=== PATIENT | female | born 1950 | race Caucasian/White ===

== ENCOUNTER 2019-06-05 19:13 | Inpatient (IN) | payer MEDICARE, MEDICAID ==
[~2019-06-05] VITALS: Ht 165.1 cm; Wt 64.0 kg
[2019-06-05 20:00] VITALS: BP 149/103
[2019-06-05] MEDS ORDERED: ONDANSETRON HCL 4MG/2ML INJ IV STA (20:03)
[2019-06-05] MEDS ORDERED: MORPHINE SULFATE 4 MG/ML CPJ (NOT FOR IM USE) IV STA (20:03)
[2019-06-05 21:05] LABS: HEMOGLOBIN. 13.9 g/dL (12.0-16.0); MEAN CORPUSCULAR HEMOGLOBIN 30.8 pg (28.0-32.0); MEAN CORPUSCULAR VOLUME 93.2 fL (81.0-99.0); MEAN PLATELET VOLUME 8.7 fl (7.4-10.4); PLATELET 321 x1000/uL (130-400); RED BLOOD CELL COUNT 4.51 mill/uL (4.2-5.4)
[2019-06-05 21:06] LABS: INR 1.1
[2019-06-05 21:07] LABS: CHLORIDE 105 mEq/L (98-107)
[2019-06-05 21:33] LABS: PLATELET ESTIMATE NORMAL
[2019-06-05 21:54] LABS: CLARITY URINE CLOUDY (CLEAR); COLOR URINE YELLOW (YELLOW); KETONES URINE 3+ (NEGATIVE); LEUKOCYTE ESTERASE URINE 1+ (NEGATIVE); NITRITE URINE NEGATIVE (NEGATIVE); OCCULT BLOOD URINE 3+ (NEGATIVE); PROTEIN URINE 3+ (NEGATIVE); SPECIFIC GRAVITY URINE 1.022 (1.005-1.030); UROBILINOGEN URINE 0.2 E.U./dL (0.2-1.0)
[2019-06-05] MEDS ORDERED: LEVOFLOXACIN 750MG PREMIX 150 ML IV ONE (22:45)
[2019-06-06] VITALS: BP_SYST 168; BP_SYST 200; BP_DIAS 100; BP_DIAS 128
[2019-06-06] MEDS ORDERED: HYDROCODONE/ACETAMINOPHEN 5/325MG TABLET PO PRN (00:30)
[2019-06-06] MEDS ORDERED: GUAIFENESIN 200MG/10ML SUGAR FREE UDC PO PRN (00:30)
[2019-06-06] MEDS ORDERED: MAGNESIUM/ALUMINUM HYDROXIDE/SIMETHICONE 30ML UDC PO PRN (00:30)
[2019-06-06] MEDS ORDERED: DOCUSATE SODIUM 100MG CAPSULE PO PRN (00:30)
[2019-06-06] MEDS ORDERED: CLONIDINE 0.1MG TABLET PO PRN (00:30)
[2019-06-06] MEDS ORDERED: IPRATROPIUM/ALBUTEROL 0.5-3(2.5)MG/3ML NEB NEB PRN (00:30)
[2019-06-06] MEDS ORDERED: LEVOFLOXACIN 500MG PREMIX 100 ML IV SCH ×2 (00:30→22:00)
[2019-06-06] MEDS ORDERED: ACETAMINOPHEN 325MG TABLET PO PRN (00:30)
[2019-06-06 03:00] VITALS: BP 155/67
[2019-06-06 04:00] VITALS: BP_SYST 150; BP_SYST 174; BP_DIAS 76; BP_DIAS 95
[2019-06-06] MEDS ORDERED: PANT40TA4 PO ×2 (04:30→04:33)
[2019-06-06] MEDS ORDERED: FLUV50TA3 PO (04:31)
[2019-06-06] MEDS ORDERED: BUSP15TA3 PO (04:32)
[2019-06-06] MEDS ORDERED: RANI300T4 PO (04:34)
[2019-06-06] MEDS ORDERED: FORM20VI IH (04:35)
[2019-06-06 08:00] VITALS: BP 159/81
[2019-06-06] MEDS ORDERED: IPRATROPIUM/ALBUTEROL 0.5-3(2.5)MG/3ML NEB HHN PRN (09:30)
[2019-06-06] MEDS ORDERED: PANTOPRAZOLE 40MG DR TABLET PO SCH (09:30)
[2019-06-06] MEDS ORDERED: POTASSIUM CHLORIDE 20MEQ TABLET SR PO NR (09:30)
[2019-06-06] MEDS: ASPIRIN 81MG EC TABLET PO SCH (10:25)
[2019-06-06] MEDS: ENOXAPARIN 40MG/0.4ML SYR SUBCUT SCH (10:26)
[2019-06-06] MEDS: BUSPIRONE HCL 10MG TABLET PO SCH ×2 (10:26→20:18)
[2019-06-06] MEDS: AMLODIPINE 10MG TABLET PO SCH (10:27)
[2019-06-06 12:00] VITALS: BP 132/79
[2019-06-06] MEDS ORDERED: GUAIFENESIN/DM 600MG/30MG ER TAB 12HR PO PRN (12:15)
[2019-06-06] MEDS ORDERED: PROCHLORPERAZINE 10MG/2ML VIAL IM PRN (12:30)
[2019-06-06] MEDS: IPRATROPIUM/ALBUTEROL 0.5-3(2.5)MG/3ML NEB HHN SCH ×2 (12:48→20:39)
[2019-06-06] MEDS: MONTELUKAST SODIUM 10MG TABLET PO SCH (18:32)
[2019-06-06 20:00] VITALS: BP 125/77
[2019-06-06] MEDS: LORATADINE 10MG TABLET PO SCH (20:18)
[2019-06-06] MEDS: FAMOTIDINE 20MG/2ML VIAL IV SCH (20:18)
[2019-06-06] MEDS: FLUTICASONE PROPIONATE 50MCG/SPRAY BOTTLE BOTHNSTRLS SCH (20:18)
[2019-06-06] MEDS: ONDANSETRON HCL 4MG/2ML INJ IV PRN (20:59)
[2019-06-07] VITALS: BP 177/96
[2019-06-07] MEDS: IPRATROPIUM/ALBUTEROL 0.5-3(2.5)MG/3ML NEB HHN SCH ×2 (01:53→08:46)
[2019-06-07 04:00] VITALS: BP 158/87
[2019-06-07 07:36] LABS: HEMATOCRIT. 40.2 % (36.0-48.0); HEMOGLOBIN. 13.3 g/dL (12.0-16.0); MEAN CORPUSCULAR VOLUME 93.9 fL (81.0-99.0); PLATELET 296 x1000/uL (130-400); RED BLOOD CELL COUNT 4.28 mill/uL (4.2-5.4); RED CELL DISTRIBUTION WIDTH 13.3 % (11.6-14.6)
[2019-06-07 08:30] LABS: CHLORIDE 105 mEq/L (98-107)
[2019-06-07] MEDS: ASPIRIN 81MG EC TABLET PO SCH (09:50)
[2019-06-07] MEDS: BUSPIRONE HCL 10MG TABLET PO SCH ×2 (09:50→20:08)
[2019-06-07] MEDS: FAMOTIDINE 20MG/2ML VIAL IV SCH ×2 (09:50→20:07)
[2019-06-07] MEDS: ENOXAPARIN 40MG/0.4ML SYR SUBCUT SCH (09:53)
[2019-06-07] MEDS: FLUTICASONE PROPIONATE 50MCG/SPRAY BOTTLE BOTHNSTRLS SCH ×2 (09:56→20:09)
[2019-06-07] MEDS: AMLODIPINE 10MG TABLET PO SCH (10:01)
[2019-06-07] MEDS ORDERED: DILTIAZEM HCL 5MG/ML 5ML VIAL IV NR (10:15)
[2019-06-07] MEDS ORDERED: DILTIAZEM HCL 5MG/ML 10ML VIAL IV NR (10:30)
[2019-06-07] MEDS ORDERED: POTASSIUM CHLORIDE 20MEQ TABLET SR PO NR (10:45)
[2019-06-07] MEDS: CEFTRIAXONE 1 G PREMIX 50 ML IV SCH (12:35)
[2019-06-07] MEDS: METOPROLOL TARTRATE 50MG TABLET PO SCH ×2 (12:35→20:09)
[2019-06-07 12:41] LABS: T4 FREE 1.19 ng/dL (0.76-1.46)
[2019-06-07] MEDS: IPRATROPIUM BROMIDE (0.02%) 0.5MG/2.5ML NEB HHN SCH ×2 (14:38→21:35)
[2019-06-07] MEDS: MONTELUKAST SODIUM 10MG TABLET PO SCH (16:20)
[2019-06-07 18:42] LABS: PLATELET ESTIMATE NORMAL
[2019-06-07 20:00] VITALS: BP 118/62
[2019-06-07] MEDS: LORATADINE 10MG TABLET PO SCH (20:08)
[2019-06-07] MEDS: ONDANSETRON HCL 4MG/2ML INJ IV PRN (20:08)
[2019-06-08] VITALS: BP 119/62
[2019-06-08] MEDS: IPRATROPIUM BROMIDE (0.02%) 0.5MG/2.5ML NEB HHN SCH ×4 (01:26→20:54)
[2019-06-08 04:00] VITALS: BP 130/67
[2019-06-08 07:08] LABS: BASOPHILS % 0.7 % (0.0-2.0); EOSINOPHILS % 0.7 % (0.0-5.0); HEMATOCRIT. 39.6 % (36.0-48.0); HEMOGLOBIN. 13.4 g/dL (12.0-16.0); MEAN CORPUSCULAR HEMOGLOBIN 31.7 pg (28.0-32.0); MEAN CORPUSCULAR VOLUME 93.8 fL (81.0-99.0); MEAN PLATELET VOLUME 8.8 fl (7.4-10.4); MONOCYTES % 6.4 % (2.0-8.0); NEUTROPHILS % 83.2 % (40.0-76.0); PLATELET 298 x1000/uL (130-400); RED BLOOD CELL COUNT 4.22 mill/uL (4.2-5.4); RED CELL DISTRIBUTION WIDTH 13.4 % (11.6-14.6)
[2019-06-08 07:22] LABS: CHLORIDE 105 mEq/L (98-107)
[2019-06-08 08:00] VITALS: BP 138/78
[2019-06-08] MEDS: ENOXAPARIN 40MG/0.4ML SYR SUBCUT SCH (09:03)
[2019-06-08] MEDS: FAMOTIDINE 20MG/2ML VIAL IV SCH ×2 (09:03→21:24)
[2019-06-08] MEDS: METOPROLOL TARTRATE 50MG TABLET PO SCH ×2 (09:04→21:23)
[2019-06-08] MEDS: FLUTICASONE PROPIONATE 50MCG/SPRAY BOTTLE BOTHNSTRLS SCH ×2 (09:04→21:24)
[2019-06-08] MEDS: ASPIRIN 81MG EC TABLET PO SCH (09:04)
[2019-06-08] MEDS: BUSPIRONE HCL 10MG TABLET PO SCH ×2 (09:04→21:23)
[2019-06-08] MEDS: AMLODIPINE 10MG TABLET PO SCH (09:08)
[2019-06-08 12:00] VITALS: BP 114/49
[2019-06-08] MEDS: CEFTRIAXONE 1 G PREMIX 50 ML IV SCH (12:45)
[2019-06-08 16:00] VITALS: BP 113/56
[2019-06-08] MEDS: MONTELUKAST SODIUM 10MG TABLET PO SCH (18:37)
[2019-06-08 20:00] VITALS: BP 141/73
[2019-06-08] MEDS: LORATADINE 10MG TABLET PO SCH (21:23)
[2019-06-09] VITALS: BP 126/57
[2019-06-09] MEDS: IPRATROPIUM BROMIDE (0.02%) 0.5MG/2.5ML NEB HHN SCH ×2 (01:58→14:00)
[2019-06-09 04:00] VITALS: BP 127/67
[2019-06-09 07:03] LABS: BASOPHILS % 0.4 % (0.0-2.0); EOSINOPHILS % 1.7 % (0.0-5.0); HEMATOCRIT. 43.7 % (36.0-48.0); HEMOGLOBIN. 14.7 g/dL (12.0-16.0); LYMPHOCYTES % 14.1 % (20.0-50.0); MEAN CORPUSCULAR HEMOGLOBIN 31.4 pg (28.0-32.0); MEAN CORPUSCULAR VOLUME 93.6 fL (81.0-99.0); MEAN PLATELET VOLUME 9.2 fl (7.4-10.4); MONOCYTES % 8.3 % (2.0-8.0); NEUTROPHILS % 75.5 % (40.0-76.0); PLATELET 319 x1000/uL (130-400); RED BLOOD CELL COUNT 4.67 mill/uL (4.2-5.4); RED CELL DISTRIBUTION WIDTH 13.4 % (11.6-14.6)
[2019-06-09 07:32] LABS: CHLORIDE 105 mEq/L (98-107)
[2019-06-09 07:42] LABS: LDL CHOLESTEROL 119 mg/dL (5-100)
[2019-06-09 07:46] LABS: HDL CHOLESTEROL 57 mg/dL (40-59)
[2019-06-09 08:00] VITALS: BP 134/77
[2019-06-09] MEDS: FLUTICASONE PROPIONATE 50MCG/SPRAY BOTTLE BOTHNSTRLS SCH (08:29)
[2019-06-09] MEDS: ENOXAPARIN 40MG/0.4ML SYR SUBCUT SCH (08:29)
[2019-06-09] MEDS: FAMOTIDINE 20MG/2ML VIAL IV SCH (08:29)
[2019-06-09] MEDS: BUSPIRONE HCL 10MG TABLET PO SCH (08:29)
[2019-06-09] MEDS: ASPIRIN 81MG EC TABLET PO SCH (08:29)
[2019-06-09] MEDS: AMLODIPINE 10MG TABLET PO SCH (08:30)
[2019-06-09] MEDS: METOPROLOL TARTRATE 50MG TABLET PO SCH (08:31)
[2019-06-09] MEDS ORDERED: BUDESONIDE 0.5MG/2ML NEB HHN SCH (09:00)
[2019-06-09] MEDS ORDERED: METF-414 PO (09:49)
[2019-06-09] MEDS ORDERED: LISI40TA4 MT (09:49)
[2019-06-09] MEDS ORDERED: QUET100T MT (09:49)
[2019-06-09] MEDS ORDERED: TRAZ150T78 MT (09:49)
[2019-06-09 12:00] VITALS: BP 131/63
[2019-06-09 13:35] VITALS: BP 131/63
[2019-06-09] MEDS ORDERED: NITROFURANTOIN 100MG M/M CAPSULE PO SCH (21:00)
[2019-06-09] MEDS ORDERED: ATORVASTATIN CALCIUM 20MG TABLET PO SCH (21:00)
== END 2019-06-09 15:50 | disposition home or self-care (01) | DRG 871 ==
LOC: ER 19:13 → 7WST 22:55 → ENRESERV 23:24 → 7WST 06-09 02:30
PROVIDERS: ADMIT Hospitalist; ATTEND Hospitalist
DX: A41.51 Sepsis due to Escherichia coli [E. coli] (principal); J18.9 Pneumonia, unspecified organism; J96.00 Acute respiratory failure, unspecified whether with hypoxia or hypercapnia; N39.0 Urinary tract infection, site not specified; I47.1 Supraventricular tachycardia; J44.0 Chronic obstructive pulmonary disease with (acute) lower respiratory infection; Z16.23 Resistance to quinolones and fluoroquinolones; B96.20 Unspecified Escherichia coli [E. coli] as the cause of diseases classified elsewhere; E87.6 Hypokalemia; I10 Essential (primary) hypertension; J30.2 Other seasonal allergic rhinitis; K21.9 Gastro-esophageal reflux disease without esophagitis; G89.29 Other chronic pain; R74.0 Nonspecific elevation of levels of transaminase and lactic acid dehydrogenase [LDH]; K29.70 Gastritis, unspecified, without bleeding; K57.90 Diverticulosis of intestine, part unspecified, without perforation or abscess without bleeding; K44.9 Diaphragmatic hernia without obstruction or gangrene; M77.9 Enthesopathy, unspecified; M19.90 Unspecified osteoarthritis, unspecified site; G40.909 Epilepsy, unspecified, not intractable, without status epilepticus; Z87.891 Personal history of nicotine dependence; Z85.828 Personal history of other malignant neoplasm of skin; Z82.49 Family history of ischemic heart disease and other diseases of the circulatory system; Z87.19 Personal history of other diseases of the digestive system; Z79.899 Other long term (current) drug therapy
CPT/HCPCS: 36415; 71045; 74176; 80048; 80053; 80061; 81003; 83036; 83735; 84439; 84443; 84484; 85025; 87077; 87186; 93005; 93970; 94640; 97162; 97166; 99285; C1893; J0696; J1650; J1956; J2270; J2405; J3490; J7620

== ENCOUNTER 2020-03-07 20:32 | Inpatient (IN) | payer MEDICARE, MEDICAID ==
[~2020-03-07] VITALS: Ht 160 cm; Wt 67.3 kg
[~2020-03-07 20:32] MED LIST: BUSP15TA3 PO; FLUV50TA3 PO; FORM20VI IH; PANT40TA4 PO; RANI300T4 PO
[2020-03-07] MEDS ORDERED: AMIODARONE HCL 900 MG in DEXT 5% WATER 500 ML IV ONE (20:45)
[2020-03-07] MEDS ORDERED: AMIODARONE HCL 150 MG in DEXT 5% WATER 100 ML IV ONE (20:45)
[2020-03-07] MEDS ORDERED: ASPIRIN 81MG TABLET PO ONE (20:45)
[2020-03-07] MEDS ORDERED: ONDANSETRON HCL 4MG/2ML INJ IV STA (20:45)
[2020-03-07] MEDS ORDERED: SODIUM CHLORIDE 0.9% 1,000 ML IV ONE (20:45)
[2020-03-07] MEDS ORDERED: MIDAZOLAM HCL 2 MG/2 ML VIAL IV ONE (21:00)
[2020-03-07 22:11] LABS: HEMATOCRIT. 34.3 % (36.0-48.0); HEMOGLOBIN. 11.3 g/dL (12.0-16.0); MEAN CORPUSCULAR HEMOGLOBIN 31.4 pg (28.0-32.0); MEAN CORPUSCULAR VOLUME 95.6 fL (81.0-99.0); MEAN PLATELET VOLUME 9.7 fl (7.4-10.4); PLATELET 216 x1000/uL (130-400); RED BLOOD CELL COUNT 3.59 mill/uL (4.2-5.4); RED CELL DISTRIBUTION WIDTH 13.9 % (11.6-14.6)
[2020-03-07 22:17] LABS: INR 1.3; PROTHROMBIN TIME 13.2 sec (9.6-11.0)
[2020-03-07 22:28] LABS: CHLORIDE 108 mEq/L (98-107)
[2020-03-07 22:56] LABS: PLATELET ESTIMATE NORMAL
[2020-03-07] MEDS ORDERED: HEPARIN 25,000 UNITS PREMIX 250 ML IV ONE (23:00)
[2020-03-07] MEDS ORDERED: HEPARIN 5000 UNITS/ML VIAL IV ONE (23:00)
[2020-03-08] VITALS (16 sets, daily range): BP systolic 102–124; BP diastolic 56–84
[2020-03-08] MEDS ORDERED: HEPARIN 60 UNITS/KG BOLUS IV SCH
[2020-03-08] MEDS ORDERED: HEPARIN BOLUS PRN aPTT 30-44 IV
[2020-03-08] MEDS ORDERED: HEPARIN 5000 UNITS/ML VIAL IV ONE
[2020-03-08] MEDS ORDERED: HEPARIN 25,000 UNITS PREMIX 250 ML IV SCH
[2020-03-08] MEDS ORDERED: HEPARIN BOLUS PRN aPTT <30 IV
[2020-03-08] MEDS ORDERED: CLONIDINE 0.1MG TABLET PO PRN (09:30)
[2020-03-08] MEDS ORDERED: IPRATROPIUM/ALBUTEROL 0.5-3(2.5)MG/3ML NEB HHN PRN (09:30)
[2020-03-08] MEDS ORDERED: CEFTRIAXONE 1 G PREMIX 50 ML IV NR (09:30)
[2020-03-08] MEDS ORDERED: DIPHENHYDRAMINE 50MG/ML VIAL IV PRN (09:30)
[2020-03-08] MEDS ORDERED: ACETAMINOPHEN 325MG TABLET PO PRN (09:30)
[2020-03-08 10:01] LABS: PHOSPHORUS 2.7 mg/dL (2.5-4.9)
[2020-03-08 10:55] LABS: CLARITY URINE CLOUDY (CLEAR); COLOR URINE YELLOW (YELLOW); KETONES URINE 1+ (NEGATIVE); OCCULT BLOOD URINE NEGATIVE (NEGATIVE); PH URINE 5.5 (4.5-8.0); PROTEIN URINE 1+ (NEGATIVE); SPECIFIC GRAVITY URINE 1.024 (1.005-1.030)
[2020-03-08 10:56] LABS: LEUKOCYTE ESTERASE URINE 2+ (NEGATIVE); NITRITE URINE NEGATIVE (NEGATIVE); UROBILINOGEN URINE 0.2 E.U./dL (0.2-1.0)
[2020-03-08 11:18] LABS: *BARBITURATES SCREEN URINE NEGATIVE (NEGATIVE)
[2020-03-08 11:20] LABS: *AMPHETAMINES SCREEN URINE NEGATIVE (NEGATIVE); *BENZODIAZEPINES SCREEN URINE PRESUMTIVE POSITIVE (NEGATIVE); *COCAINE SCREEN URINE NEGATIVE (NEGATIVE); CANNABINOID URINE SCREEN NEGATIVE (NEGATIVE); METHADONE URINE SCREEN NEGATIVE (NEGATIVE); OPIATES URINE SCREEN NEGATIVE (NEGATIVE); PHENCYCLIDINE URINE SCREEN NEGATIVE (NEGATIVE)
[2020-03-08] MEDS ORDERED: POTASSIUM CHLORIDE INJ 40 MEQ in DEXT 5% WATER 250 ML IV SCH (13:00)
[2020-03-08] MEDS ORDERED: HEPARIN 5000 UNITS/ML VIAL IV PRN (16:00)
[2020-03-08 18:44] LABS: CREATINE KINASE MB FRACTION 15.2 ng/mL (0.5-3.6)
[2020-03-08] MEDS: CEFTRIAXONE 1,000 MG in DEXTROSE 5% WATER 50 ML IV SCH (20:22)
[2020-03-08] MEDS: ONDANSETRON HCL 4MG/2ML INJ IV PRN (20:22)
[2020-03-08] MEDS: BLOOD SUGAR DIAGNOSTIC STRIP TEST SCH (20:55)
[2020-03-08] MEDS: INSULIN LISPRO 100 UNITS/ML SUBCUT SCH (21:05)
[2020-03-09] VITALS (61 sets, daily range): BP systolic 11–129; BP diastolic 37–87
[2020-03-09 00:29] LABS: CREATINE KINASE MB FRACTION 12.9 ng/mL (0.5-3.6)
[2020-03-09] MEDS ORDERED: DILTIAZEM HCL 5MG/ML 5ML VIAL IV SCH (05:00)
[2020-03-09] MEDS ORDERED: AMIODARONE HCL 150 MG in DEXT 5% WATER 100 ML IV SCH (05:30)
[2020-03-09] MEDS: AMIODARONE HCL 900 MG in DEXT 5% WATER 482 ML IV PRN (05:56)
[2020-03-09 06:51] LABS: BASOPHILS % 0.2 % (0.0-2.0); EOSINOPHILS % 0.1 % (0.0-5.0); HEMATOCRIT. 37.4 % (36.0-48.0); HEMOGLOBIN. 12.5 g/dL (12.0-16.0); LYMPHOCYTES % 7.8 % (20.0-50.0); MEAN CORPUSCULAR HEMOGLOBIN 31.3 pg (28.0-32.0); MEAN PLATELET VOLUME 10.2 fl (7.4-10.4); MONOCYTES % 6.6 % (2.0-8.0); NEUTROPHILS % 85.3 % (40.0-76.0); PLATELET 241 x1000/uL (130-400); RED BLOOD CELL COUNT 3.98 mill/uL (4.2-5.4); RED CELL DISTRIBUTION WIDTH 13.8 % (11.6-14.6)
[2020-03-09 07:16] LABS: CHLORIDE 102 mEq/L (98-107)
[2020-03-09 07:19] LABS: HDL CHOLESTEROL 58 mg/dL (40-59); LDL CHOLESTEROL 33 mg/dL (5-100)
[2020-03-09] MEDS: BLOOD SUGAR DIAGNOSTIC STRIP TEST SCH ×4 (07:50→21:00)
[2020-03-09] MEDS: MORPHINE SULFATE 2 MG/ML CPJ (NOT FOR IM USE) IV PRN ×3 (08:15→16:42)
[2020-03-09] MEDS: INSULIN LISPRO 100 UNITS/ML SUBCUT SCH ×4 (08:20→21:00)
[2020-03-09] MEDS ORDERED: CEFTRIAXONE 1,000 MG in DEXTROSE 5% WATER 50 ML IV SCH (09:00)
[2020-03-09] MEDS ORDERED: FENTANYL CITRATE/PF 50MCG/ML 2ML VIAL ONE (10:08)
[2020-03-09] MEDS ORDERED: MIDAZOLAM HCL 2 MG/2 ML VIAL ONE (10:08)
[2020-03-09] MEDS ORDERED: IODIXANOL 320MG/ML 100 ML BOTTLE IV ONE (10:08)
[2020-03-09] MEDS ORDERED: LIDOCAINE HCL 1% 20ML VIAL (Pyxis) INJ ONE ×2 (10:08→10:38)
[2020-03-09] MEDS ORDERED: ACETAMINOPHEN 325MG TABLET PO PRN (11:15)
[2020-03-09] MEDS ORDERED: ATROPINE SULFATE 1MG/10ML SYR IV PRN (11:15)
[2020-03-09] MEDS: SACUBITRIL PO SCH ×2 (11:45→23:45)
[2020-03-09] MEDS: VALSARTAN PO SCH ×2 (11:45→23:45)
[2020-03-09 12:33] LABS: CREATINE KINASE 692 IU/L (26-192)
[2020-03-09] MEDS: NYSTATIN POWDER 15GM TOP SCH ×2 (14:30→17:00)
[2020-03-09] MEDS ORDERED: DILTIAZEM HCL 5MG/ML 5ML VIAL IV NR (15:15)
[2020-03-09] MEDS ORDERED: PNEUMOCOCCAL 23-VAL P-SAC VAC 0.5 ML IM ONE (17:00)
[2020-03-09] MEDS ORDERED: INFLUENZA VACCINE 05/PF 0.5 ML VIAL IM ONE (17:00)
[2020-03-09 17:18] LABS: HEPATITIS B SURFACE ANTIGEN NEGATIVE
[2020-03-09 17:48] LABS: HEPATITIS A AB IGM NEGATIVE (NEGATIVE)
[2020-03-09] MEDS: CEFTRIAXONE 1,000 MG in DEXTROSE 5% WATER 50 ML IV SCH (18:55)
[2020-03-09] MEDS: CARVEDILOL 6.25 MG TABLET PO SCH (21:00)
[2020-03-09] MEDS ORDERED: CARVEDILOL 3.125 MG TABLET PO SCH (21:00)
[2020-03-09] MEDS ORDERED: DIGOXIN 500MCG/2ML AMP IV NR (23:00)
[2020-03-09] MEDS ORDERED: MIDODRINE HCL 2.5MG TABLET PO NR (23:00)
[2020-03-10] VITALS (71 sets, daily range): BP systolic 55–133; BP diastolic 23–74
[2020-03-10] MEDS: PHENYLEPHRINE 50 MG in DEXT 5% WATER 245 ML IV PRN ×4 (00:29→21:52)
[2020-03-10] MEDS: MORPHINE SULFATE 2 MG/ML CPJ (NOT FOR IM USE) IV PRN (02:10)
[2020-03-10 06:37] LABS: BASOPHILS % 0.2 % (0.0-2.0); HEMATOCRIT. 38.8 % (36.0-48.0); HEMOGLOBIN. 12.9 g/dL (12.0-16.0); LYMPHOCYTES % 9.3 % (20.0-50.0); MEAN CORPUSCULAR HEMOGLOBIN 31.4 pg (28.0-32.0); MEAN CORPUSCULAR VOLUME 94.1 fL (81.0-99.0); MONOCYTES % 8.2 % (2.0-8.0); NEUTROPHILS % 81.3 % (40.0-76.0); PLATELET 217 x1000/uL (130-400); RED BLOOD CELL COUNT 4.13 mill/uL (4.2-5.4); RED CELL DISTRIBUTION WIDTH 13.6 % (11.6-14.6)
[2020-03-10] MEDS: AMIODARONE HCL 900 MG in DEXT 5% WATER 482 ML IV PRN (06:51)
[2020-03-10 07:33] LABS: PHOSPHORUS 3.4 mg/dL (2.5-4.9)
[2020-03-10] MEDS: INSULIN LISPRO 100 UNITS/ML SUBCUT SCH ×4 (08:15→21:00)
[2020-03-10] MEDS: BLOOD SUGAR DIAGNOSTIC STRIP TEST SCH ×4 (08:15→21:00)
[2020-03-10] MEDS: CARVEDILOL 6.25 MG TABLET PO SCH (08:58)
[2020-03-10] MEDS: NYSTATIN POWDER 15GM TOP SCH ×3 (08:59→17:00)
[2020-03-10] MEDS: DEXT 5%/0.9% NACL 1,000 ML IV SCH ×2 (10:15→22:37)
[2020-03-10] MEDS: CEFTRIAXONE 1,000 MG in DEXTROSE 5% WATER 50 ML IV SCH (16:53)
[2020-03-10] MEDS: AMIODARONE HCL 200 MG TABLET PO SCH (20:19)
[2020-03-10] MEDS: DEXTROSE 50% WATER 50ML SYRINGE IV PRN (20:36)
[2020-03-11] VITALS (95 sets, daily range): BP systolic 86–148; BP diastolic 26–103
[2020-03-11] MEDS: MORPHINE SULFATE 2 MG/ML CPJ (NOT FOR IM USE) IV PRN (05:50)
[2020-03-11 06:42] LABS: BASOPHILS % 0.3 % (0.0-2.0); EOSINOPHILS % 0.6 % (0.0-5.0); HEMATOCRIT. 39.7 % (36.0-48.0); HEMOGLOBIN. 13.1 g/dL (12.0-16.0); LYMPHOCYTES % 8.5 % (20.0-50.0); MEAN CORPUSCULAR HEMOGLOBIN 31.5 pg (28.0-32.0); MEAN CORPUSCULAR VOLUME 95.2 fL (81.0-99.0); MEAN PLATELET VOLUME 10.2 fl (7.4-10.4); NEUTROPHILS % 82.6 % (40.0-76.0); PLATELET 134 x1000/uL (130-400); RED BLOOD CELL COUNT 4.17 mill/uL (4.2-5.4); RED CELL DISTRIBUTION WIDTH 13.8 % (11.6-14.6)
[2020-03-11] MEDS: INSULIN LISPRO 100 UNITS/ML SUBCUT SCH ×4 (07:46→21:00)
[2020-03-11] MEDS: BLOOD SUGAR DIAGNOSTIC STRIP TEST SCH ×4 (07:46→21:00)
[2020-03-11] MEDS: NYSTATIN POWDER 15GM TOP SCH ×3 (09:00→17:35)
[2020-03-11] MEDS: MIDODRINE HCL 2.5MG TABLET PO SCH ×3 (09:55→17:35)
[2020-03-11] MEDS: AMIODARONE HCL 200 MG TABLET PO SCH ×2 (09:56→20:21)
[2020-03-11] MEDS ORDERED: SODIUM PHOS,M-BASIC-D-BASIC 15 MM in DEXT 5% WATER 245 ML IV ONE (11:00)
[2020-03-11] MEDS: DEXT 5%/0.9% NACL 1,000 ML IV SCH (12:52)
[2020-03-11] MEDS: CEFTRIAXONE 1,000 MG in DEXTROSE 5% WATER 50 ML IV SCH (17:35)
[2020-03-11 23:49] LABS: HEMATOCRIT. 41.6 % (36.0-48.0); HEMOGLOBIN. 13.9 g/dL (12.0-16.0); MEAN CORPUSCULAR HEMOGLOBIN 31.9 pg (28.0-32.0); MEAN CORPUSCULAR VOLUME 95.1 fL (81.0-99.0); MEAN PLATELET VOLUME 8.9 fl (7.4-10.4); PLATELET 98 x1000/uL (130-400); RED BLOOD CELL COUNT 4.37 mill/uL (4.2-5.4); RED CELL DISTRIBUTION WIDTH 14.4 % (11.6-14.6)
[2020-03-11 23:57] LABS: INR 1.3; PARTIAL THROMBOPLASTIN TIME 33.6 sec (23.4-31.0); PROTHROMBIN TIME 13.3 sec (9.6-11.0)
[2020-03-12] VITALS (77 sets, daily range): BP systolic 72–166; BP diastolic 14–110
[2020-03-12] MEDS ORDERED: HEPARIN BOLUS PRN aPTT 37-44 IV ×2 (00:15)
[2020-03-12] MEDS ORDERED: HEPARIN 25,000 UNITS PREMIX 250 ML IV SCH (00:15)
[2020-03-12] MEDS ORDERED: HEPARIN BOLUS PRN aPTT <36 IV ×2 (00:15)
[2020-03-12] MEDS ORDERED: HEPARIN 80 UNITS/KG BOLUS IV SCH ×2 (00:15)
[2020-03-12 01:32] LABS: NUCLEATED RED BLOOD CELLS 2 /100 WBC; PLATELET ESTIMATE SLIGHTLY DECREASED
[2020-03-12] MEDS: PHENYLEPHRINE 50 MG in DEXT 5% WATER 245 ML IV PRN (05:40)
[2020-03-12] MEDS: DEXT 5%/0.9% NACL 1,000 ML IV SCH (05:40)
[2020-03-12] MEDS: BLOOD SUGAR DIAGNOSTIC STRIP TEST SCH ×4 (07:03→21:00)
[2020-03-12] MEDS: INSULIN LISPRO 100 UNITS/ML SUBCUT SCH ×4 (07:03→21:00)
[2020-03-12 08:11] LABS: HEMATOCRIT. 37.7 % (36.0-48.0); HEMOGLOBIN. 12.5 g/dL (12.0-16.0); MEAN CORPUSCULAR HEMOGLOBIN 31.5 pg (28.0-32.0); MEAN CORPUSCULAR VOLUME 94.5 fL (81.0-99.0); MEAN PLATELET VOLUME 9.3 fl (7.4-10.4); PLATELET 91 x1000/uL (130-400); RED BLOOD CELL COUNT 3.99 mill/uL (4.2-5.4); RED CELL DISTRIBUTION WIDTH 14.2 % (11.6-14.6)
[2020-03-12 08:28] LABS: PHOSPHORUS 2.4 mg/dL (2.5-4.9)
[2020-03-12 08:32] LABS: INR 1.3; PROTHROMBIN TIME 13.5 sec (9.6-11.0)
[2020-03-12 09:02] LABS: NUCLEATED RED BLOOD CELLS 3 /100 WBC; PLATELET ESTIMATE DECREASED
[2020-03-12] MEDS: MIDODRINE HCL 2.5MG TABLET PO SCH ×3 (09:54→17:46)
[2020-03-12] MEDS: NYSTATIN POWDER 15GM TOP SCH ×3 (09:56→17:56)
[2020-03-12] MEDS: AMIODARONE HCL 200 MG TABLET PO SCH ×2 (11:00→21:00)
[2020-03-12] MEDS ORDERED: IPRATROPIUM BROMIDE (0.02%) 0.5MG/2.5ML NEB HHN PRN (11:30)
[2020-03-12] MEDS: CEFTRIAXONE 1,000 MG in DEXTROSE 5% WATER 50 ML IV SCH (17:46)
[2020-03-12] MEDS: APIXABAN 5 MG TABLET PO SCH (17:56)
[2020-03-12] MEDS: DEXTROSE 50% WATER 50ML SYRINGE IV PRN (22:00)
[2020-03-13] VITALS (44 sets, daily range): BP systolic 96–159; BP diastolic 38–95
[2020-03-13] MEDS ORDERED: HEPARIN 25,000 UNITS PREMIX 250 ML IV SCH
[2020-03-13] MEDS: DEXT 5%/0.9% NACL 1,000 ML IV SCH ×2 (00:08→18:14)
[2020-03-13] MEDS: DEXTROSE 50% WATER 50ML SYRINGE IV PRN (01:48)
[2020-03-13 05:38] LABS: HEMATOCRIT. 36.6 % (36.0-48.0); MEAN CORPUSCULAR HEMOGLOBIN 31.4 pg (28.0-32.0); MEAN CORPUSCULAR VOLUME 95.8 fL (81.0-99.0); MEAN PLATELET VOLUME 9.6 fl (7.4-10.4); PLATELET 109 x1000/uL (130-400); RED BLOOD CELL COUNT 3.82 mill/uL (4.2-5.4); RED CELL DISTRIBUTION WIDTH 14.3 % (11.6-14.6)
[2020-03-13 05:51] LABS: CHLORIDE 111 mEq/L (98-107)
[2020-03-13] MEDS: BLOOD SUGAR DIAGNOSTIC STRIP TEST SCH ×7 (06:22→21:51)
[2020-03-13] MEDS: INSULIN LISPRO 100 UNITS/ML SUBCUT SCH ×4 (08:20→21:00)
[2020-03-13] MEDS: MIDODRINE HCL 2.5MG TABLET PO SCH ×3 (09:00→18:25)
[2020-03-13] MEDS: NYSTATIN POWDER 15GM TOP SCH ×3 (09:00→21:51)
[2020-03-13] MEDS: APIXABAN 5 MG TABLET PO SCH ×2 (09:14→18:25)
[2020-03-13] MEDS: AMIODARONE HCL 200 MG TABLET PO SCH ×2 (09:15→21:50)
[2020-03-13 11:51] LABS: NUCLEATED RED BLOOD CELLS 1 /100 WBC
[2020-03-13 11:53] LABS: PLATELET ESTIMATE SLIGHTLY DECREASED
[2020-03-13] MEDS: CEFTRIAXONE 1,000 MG in DEXTROSE 5% WATER 50 ML IV SCH (18:15)
[2020-03-13] MEDS ORDERED: PIPERONYL/PYRETHRINS (RID)120 ML SHAMPOO TOP NR (20:00)
[2020-03-14] VITALS (11 sets, daily range): BP systolic 110–136; BP diastolic 46–90
[2020-03-14] MEDS: BLOOD SUGAR DIAGNOSTIC STRIP TEST SCH ×4 (06:21→21:45)
[2020-03-14 06:53] LABS: BASOPHILS % 0.2 % (0.0-2.0); EOSINOPHILS % 2.8 % (0.0-5.0); HEMATOCRIT. 33.1 % (36.0-48.0); HEMOGLOBIN. 10.9 g/dL (12.0-16.0); LYMPHOCYTES % 8.6 % (20.0-50.0); MEAN CORPUSCULAR HEMOGLOBIN 31.5 pg (28.0-32.0); MEAN CORPUSCULAR VOLUME 95.3 fL (81.0-99.0); MEAN PLATELET VOLUME 10.1 fl (7.4-10.4); MONOCYTES % 14.6 % (2.0-8.0); NEUTROPHILS % 73.8 % (40.0-76.0); PLATELET 132 x1000/uL (130-400); RED BLOOD CELL COUNT 3.47 mill/uL (4.2-5.4); RED CELL DISTRIBUTION WIDTH 14.6 % (11.6-14.6)
[2020-03-14 07:06] LABS: CHLORIDE 107 mEq/L (98-107)
[2020-03-14] MEDS: INSULIN LISPRO 100 UNITS/ML SUBCUT SCH ×4 (07:20→21:00)
[2020-03-14 07:26] LABS: PHOSPHORUS 1.6 mg/dL (2.5-4.9)
[2020-03-14] MEDS: APIXABAN 5 MG TABLET PO SCH ×2 (09:02→16:47)
[2020-03-14] MEDS: AMIODARONE HCL 200 MG TABLET PO SCH ×2 (09:02→22:17)
[2020-03-14] MEDS: MIDODRINE HCL 2.5MG TABLET PO SCH ×3 (09:02→16:46)
[2020-03-14] MEDS: NYSTATIN POWDER 15GM TOP SCH ×3 (09:03→16:47)
[2020-03-14] MEDS: DEXT 5%/0.9% NACL 1,000 ML IV SCH (09:03)
[2020-03-14] MEDS ORDERED: PNEUMOCOCCAL 23-VAL P-SAC VAC 0.5 ML IM ONE (10:15)
[2020-03-14] MEDS ORDERED: POTASSIUM PHOS,M-BASIC-D-BASIC 20 MMOL in DEXT 5% WATER 243.3333 ML IV SCH (11:00)
[2020-03-15] VITALS (14 sets, daily range): BP systolic 110–163; BP diastolic 50–82
[2020-03-15 05:29] LABS: BASOPHILS % 0.2 % (0.0-2.0); EOSINOPHILS % 1.7 % (0.0-5.0); HEMATOCRIT. 30.1 % (36.0-48.0); HEMOGLOBIN. 9.9 g/dL (12.0-16.0); LYMPHOCYTES % 8.8 % (20.0-50.0); MEAN CORPUSCULAR HEMOGLOBIN 31.1 pg (28.0-32.0); MEAN CORPUSCULAR VOLUME 94.6 fL (81.0-99.0); MONOCYTES % 11.3 % (2.0-8.0); PLATELET 150 x1000/uL (130-400); RED BLOOD CELL COUNT 3.18 mill/uL (4.2-5.4); RED CELL DISTRIBUTION WIDTH 14.3 % (11.6-14.6)
[2020-03-15 05:43] LABS: CHLORIDE 108 mEq/L (98-107)
[2020-03-15 05:51] LABS: PHOSPHORUS 2.2 mg/dL (2.5-4.9)
[2020-03-15] MEDS: INSULIN LISPRO 100 UNITS/ML SUBCUT SCH ×4 (06:31→21:00)
[2020-03-15] MEDS: BLOOD SUGAR DIAGNOSTIC STRIP TEST SCH ×4 (06:31→21:16)
[2020-03-15] MEDS: APIXABAN 5 MG TABLET PO SCH (08:33)
[2020-03-15] MEDS: NYSTATIN POWDER 15GM TOP SCH (08:33)
[2020-03-15] MEDS: MIDODRINE HCL 2.5MG TABLET PO SCH (08:33)
[2020-03-15] MEDS: AMIODARONE HCL 200 MG TABLET PO SCH ×2 (08:33→20:57)
[2020-03-15] MEDS ORDERED: MAGNESIUM 2 G PREMIX 50 ML IV ONE (09:00)
[2020-03-15] MEDS: ONDANSETRON HCL 4MG/2ML INJ IV PRN (11:28)
[2020-03-15] MEDS ORDERED: POTASSIUM PHOS,M-BASIC-D-BASIC 20 MMOL in DEXT 5% WATER 243.3333 ML IV NR (12:00)
[2020-03-15] MEDS: FUROSEMIDE 40MG/4ML VIAL IVP SCH (16:49)
[2020-03-15] MEDS: ENOXAPARIN 80MG/0.8ML SYR SUBCUT SCH (16:50)
[2020-03-15] MEDS: DEXTROSE 50% WATER 50ML SYRINGE IV PRN (21:11)
[2020-03-16] VITALS (12 sets, daily range): BP systolic 95–131; BP diastolic 53–87
[2020-03-16 04:07] LABS: CHLORIDE 102 mEq/L (98-107)
[2020-03-16 04:09] LABS: BASOPHILS % 0.9 % (0.0-2.0); EOSINOPHILS % 2.3 % (0.0-5.0); HEMATOCRIT. 31.9 % (36.0-48.0); HEMOGLOBIN. 10.6 g/dL (12.0-16.0); LYMPHOCYTES % 8.9 % (20.0-50.0); MEAN CORPUSCULAR HEMOGLOBIN 31.5 pg (28.0-32.0); MEAN CORPUSCULAR VOLUME 94.6 fL (81.0-99.0); MEAN PLATELET VOLUME 9.5 fl (7.4-10.4); MONOCYTES % 4.9 % (2.0-8.0); PLATELET 199 x1000/uL (130-400); RED BLOOD CELL COUNT 3.38 mill/uL (4.2-5.4); RED CELL DISTRIBUTION WIDTH 14.6 % (11.6-14.6)
[2020-03-16] MEDS: DEXTROSE 50% WATER 50ML SYRINGE IV PRN (04:20)
[2020-03-16] MEDS: ENOXAPARIN 80MG/0.8ML SYR SUBCUT SCH ×2 (05:29→18:40)
[2020-03-16 05:37] LABS: PHOSPHORUS 3.1 mg/dL (2.5-4.9)
[2020-03-16] MEDS: BLOOD SUGAR DIAGNOSTIC STRIP TEST SCH ×4 (06:30→21:02)
[2020-03-16] MEDS: INSULIN LISPRO 100 UNITS/ML SUBCUT SCH ×4 (06:30→21:00)
[2020-03-16] MEDS ORDERED: LIDOCAINE HCL 1% 20ML VIAL (Pyxis) INJ ONE (09:10)
[2020-03-16] MEDS: AMIODARONE HCL 200 MG TABLET PO SCH ×2 (09:14→20:38)
[2020-03-16] MEDS: FUROSEMIDE 40MG/4ML VIAL IVP SCH (09:14)
[2020-03-16] MEDS ORDERED: IOHEXOL-350 100 ML BOTTLE ONE ×2 (12:01→13:46)
[2020-03-17] VITALS (25 sets, daily range): BP systolic 60–152; BP diastolic 38–95
[2020-03-17] MEDS: ENOXAPARIN 80MG/0.8ML SYR SUBCUT SCH (05:09)
[2020-03-17] MEDS: BLOOD SUGAR DIAGNOSTIC STRIP TEST SCH ×4 (06:00→20:10)
[2020-03-17] MEDS: DEXTROSE 50% WATER 50ML SYRINGE IV PRN (06:00)
[2020-03-17 06:47] LABS: BASOPHILS % 0.4 % (0.0-2.0); EOSINOPHILS % 1.3 % (0.0-5.0); HEMATOCRIT. 31.4 % (36.0-48.0); HEMOGLOBIN. 10.3 g/dL (12.0-16.0); LYMPHOCYTES % 7.5 % (20.0-50.0); MEAN CORPUSCULAR HEMOGLOBIN 31.2 pg (28.0-32.0); MEAN CORPUSCULAR VOLUME 94.8 fL (81.0-99.0); MEAN PLATELET VOLUME 10.5 fl (7.4-10.4); MONOCYTES % 8.4 % (2.0-8.0); NEUTROPHILS % 82.4 % (40.0-76.0); PLATELET 205 x1000/uL (130-400); RED BLOOD CELL COUNT 3.31 mill/uL (4.2-5.4); RED CELL DISTRIBUTION WIDTH 14.6 % (11.6-14.6)
[2020-03-17 07:06] LABS: CHLORIDE 102 mEq/L (98-107)
[2020-03-17] MEDS: INSULIN LISPRO 100 UNITS/ML SUBCUT SCH ×4 (07:20→20:27)
[2020-03-17] MEDS: AMIODARONE HCL 200 MG TABLET PO SCH ×2 (08:25→20:10)
[2020-03-17] MEDS: FUROSEMIDE 40MG/4ML VIAL IVP SCH (08:25)
[2020-03-17] MEDS ORDERED: LIDOCAINE HCL 1% 20ML VIAL (Pyxis) INJ ONE (13:27)
[2020-03-17] MEDS ORDERED: IOHEXOL-300 100 ML BOTTLE ONE (13:36)
[2020-03-17] MEDS ORDERED: MIDAZOLAM HCL 2 MG/2 ML VIAL ONE (13:51)
[2020-03-17] MEDS ORDERED: FENTANYL CITRATE/PF 50MCG/ML 2ML VIAL ONE (13:51)
[2020-03-17] MEDS: ENOXAPARIN 60MG/0.6ML SYR SUBCUT SCH (19:00)
[2020-03-18] VITALS (15 sets, daily range): BP systolic 92–129; BP diastolic 39–74
[2020-03-18] MEDS: NITROGLYCERIN OINT 1GM/INCH UDPKT TD SCH ×5 (00:56→23:27)
[2020-03-18] MEDS: ENOXAPARIN 60MG/0.6ML SYR SUBCUT SCH (05:38)
[2020-03-18] MEDS: BLOOD SUGAR DIAGNOSTIC STRIP TEST SCH ×4 (06:14→21:23)
[2020-03-18 07:01] LABS: HEMATOCRIT. 27.2 % (36.0-48.0); MEAN CORPUSCULAR HEMOGLOBIN 31.6 pg (28.0-32.0); MEAN PLATELET VOLUME 9.7 fl (7.4-10.4); PLATELET 229 x1000/uL (130-400); RED BLOOD CELL COUNT 2.84 mill/uL (4.2-5.4)
[2020-03-18] MEDS: INSULIN LISPRO 100 UNITS/ML SUBCUT SCH ×4 (07:20→21:00)
[2020-03-18] MEDS: FUROSEMIDE 40MG/4ML VIAL IVP SCH (08:30)
[2020-03-18] MEDS: AMIODARONE HCL 200 MG TABLET PO SCH ×2 (08:30→21:23)
[2020-03-18 10:09] LABS: PLATELET ESTIMATE NORMAL
[2020-03-18] MEDS: NEOMY SULF/BACITRAC ZN/POLY OINT 28GM TOP SCH ×2 (12:22→21:23)
[2020-03-18] MEDS: NIFEDIPINE XL 60MG TAB PO SCH (12:26)
[2020-03-18] MEDS ORDERED: WARFARIN SODIUM 5MG TABLET PO NR (18:00)
[2020-03-18] MEDS: ENOXAPARIN 80MG/0.8ML SYR SUBCUT SCH (18:37)
[2020-03-18] MEDS: ONDANSETRON HCL 4MG/2ML INJ IV PRN (18:41)
[2020-03-18] MEDS: CEFEPIME 1,000 MG in DEXTROSE 5% WATER 50 ML IV SCH (21:32)
[2020-03-18] MEDS ORDERED: VANCOMYCIN 1500MG in DEXTROSE 5% WATER 250ML IV NR (23:00)
[2020-03-19] VITALS (66 sets, daily range): BP systolic 29–154; BP diastolic 15–112
[2020-03-19] MEDS: ONDANSETRON HCL 4MG/2ML INJ IV PRN (00:47)
[2020-03-19] MEDS ORDERED: DOPAMINE 800MG PREMIX (DOUBLE) 250 ML IV ONE (02:19)
[2020-03-19 02:31] LABS: BG BASE EXCESS -10.2 mmol/L (-2.0-2.0); BG CARBOXYHEMOGLOBIN 0.1 % (0.5-1.5); BG DEOXYHEMOGLOBIN 39.3 % (0.0-5.0); BG FRACTION INSPIRED OXYGEN 100; BG HCO3 ACT 19.5 mmol/L (22.0-26.0); BG METHEMOGLOBIN 0.3 % (0.0-1.5); BG OXYGEN SATURATION 60.5 % (92.0-98.5); BG OXYHEMOGLOBIN 60.3 % (94.0-97.0); BG PH 7.095 (7.350-7.450); BG PO2 47.1 mmHg (75.0-100.0); BG SAMPLE SITE RIGHT FEMORAL; BG TOTAL HEMOGLOBIN 9.5 g/dL (12.0-18.0); BG VENT MODE MASK - NRB
[2020-03-19] MEDS: NOREPINEPHRINE 32 MG in DEXT 5% WATER 218 ML IV PRN ×3 (03:34→20:17)
[2020-03-19] MEDS: PHENYLEPHRINE 100 MG in DEXT 5% WATER 240 ML IV PRN ×3 (03:36→18:51)
[2020-03-19 03:42] LABS: HEMATOCRIT. 26.1 % (36.0-48.0); HEMOGLOBIN. 8.1 g/dL (12.0-16.0); MEAN CORPUSCULAR HEMOGLOBIN 30.9 pg (28.0-32.0); MEAN PLATELET VOLUME 9.2 fl (7.4-10.4); PLATELET 253 x1000/uL (130-400); RED BLOOD CELL COUNT 2.61 mill/uL (4.2-5.4)
[2020-03-19 03:44] LABS: BG BASE EXCESS -12.3 mmol/L (-2.0-2.0); BG CARBOXYHEMOGLOBIN 0.3 % (0.5-1.5); BG DEOXYHEMOGLOBIN 10.4 % (0.0-5.0); BG FRACTION INSPIRED OXYGEN 100; BG HCO3 ACT 13.8 mmol/L (22.0-26.0); BG OXYGEN SATURATION 89.6 % (92.0-98.5); BG OXYHEMOGLOBIN 89.3 % (94.0-97.0); BG PCO2 32.3 mmHg (35.0-45.0); BG PO2 75.4 mmHg (75.0-100.0); BG SAMPLE SITE RIGHT FEMORAL; BG TOTAL HEMOGLOBIN 9.1 g/dL (12.0-18.0); BG VENT MODE VENT - AC
[2020-03-19 03:49] LABS: INR 1.2; PROTHROMBIN TIME 12.9 sec (9.6-11.0)
[2020-03-19 03:53] LABS: CHLORIDE 94 mEq/L (98-107)
[2020-03-19 03:58] LABS: PHOSPHORUS 7.3 mg/dL (2.5-4.9)
[2020-03-19] MEDS ORDERED: EPINEPHRINE 0.1MG/ML (1:10,000) 10ML SYR ONE (04:00)
[2020-03-19] MEDS ORDERED: CALCIUM CHLORIDE 1GM/10ML SYR IV ONE (04:00)
[2020-03-19] MEDS ORDERED: DEXTROSE 50% WATER 50ML SYRINGE IV ONE (04:00)
[2020-03-19] MEDS ORDERED: ETOMIDATE 2MG/ML 10ML VIAL IV ONE (04:00)
[2020-03-19] MEDS ORDERED: SODIUM BICARBONATE 8.4% 1 MEQ/ML 50ML SYR IV ONE (04:00)
[2020-03-19 04:06] LABS: NUCLEATED RED BLOOD CELLS 2 /100 WBC; PLATELET ESTIMATE NORMAL
[2020-03-19] MEDS ORDERED: PROPOFOL 10MG/ML 100ML 100 ML IV PRN (04:15)
[2020-03-19] MEDS ORDERED: SODIUM BICARBONATE 8.4% 1 MEQ/ML 50ML SYR IV SCH (04:15)
[2020-03-19] MEDS: NITROGLYCERIN OINT 1GM/INCH UDPKT TD SCH (05:39)
[2020-03-19] MEDS: ENOXAPARIN 80MG/0.8ML SYR SUBCUT SCH (05:45)
[2020-03-19] MEDS: DOPAMINE 800MG PREMIX (DOUBLE) 250 ML IV PRN ×2 (06:32→11:44)
[2020-03-19] MEDS: VASOPRESSIN 20 UNIT in SODIUM CHLORIDE 0.9% 99 ML IV PRN ×2 (07:45→14:40)
[2020-03-19] MEDS ORDERED: MIDAZOLAM HCL 100 MG in DEXT 5% WATER 80 ML IV PRN (08:30)
[2020-03-19] MEDS ORDERED: FENTANYL CITRATE/PF 1,000 MCG in SODIUM CHLORIDE 0.9% 80 ML IV PRN (08:30)
[2020-03-19] MEDS: NIFEDIPINE XL 60MG TAB PO SCH (08:38)
[2020-03-19] MEDS: AMIODARONE HCL 200 MG TABLET PO SCH (08:38)
[2020-03-19] MEDS: CEFEPIME 1,000 MG in DEXTROSE 5% WATER 50 ML IV SCH (09:29)
[2020-03-19] MEDS: NEOMY SULF/BACITRAC ZN/POLY OINT 28GM TOP SCH (09:30)
[2020-03-19] MEDS: PANTOPRAZOLE SODIUM 40 MG/VIAL IV SCH ×2 (09:33→16:17)
[2020-03-19] MEDS ORDERED: VANCOMYCIN 750 MG PREMIX 150 ML IV SCH (11:00)
[2020-03-19] MEDS: INSULIN LISPRO 100 UNITS/ML SUBCUT SCH ×2 (12:00→17:14)
[2020-03-19] MEDS ORDERED: SODIUM BICARBONATE 100 MEQ in SODIUM CHLORIDE 0.45% 1,000 ML IV SCH (12:00)
[2020-03-19] MEDS: BLOOD SUGAR DIAGNOSTIC STRIP TEST SCH ×2 (12:08→17:14)
[2020-03-19] MEDS: DEXTROSE 50% WATER 50ML SYRINGE IV PRN ×2 (12:25→17:18)
[2020-03-19] MEDS ORDERED: DEXTROSE 50% WATER 50ML SYRINGE IV NR (12:45)
[2020-03-19 15:10] LABS: ANTI-CENTROMERE B ANTIBODIES < 0.2 AI (0.0-0.9); ANTI-DNA DOUBLE STRANDED QUANT 2 IU/mL (0-9); RNP ANTIBODY < 0.2 AI (0.0-0.9); SMITH ANTIBODY < 0.2 AI (0.0-0.9)
[2020-03-19] MEDS ORDERED: VANCOMYCIN 1 G PREMIX 200 ML IV SCH (18:00)
[2020-03-21 09:06] LABS: ANTI-CARDIOLIPIN AB IGA < 9 APL U/mL (0-11); ANTI-CARDIOLIPIN AB IGG < 9 GPL U/mL (0-14); ANTI-CARDIOLIPIN AB IGM < 9 MPL U/mL (0-12)
[2020-03-21 17:10] LABS: ANTI-MYELOPEROXIDASE AB < 9.0 U/mL (0.0-9.0); ANTI-PROTEINASE 3 ABS < 3.5 U/mL (0.0-3.5)
[2020-03-22 15:07] LABS: ANA IFA Negative (.)
[2020-03-23 13:11] LABS: ATYPICAL P-ANCA <1:20 titer (Neg:<1:20); CYTOPLASMIC C-ANCA <1:20 titer (Neg:<1:20); PERINUCLEAR P-ANCA <1:20 titer (Neg:<1:20)
== END 2020-03-19 22:00 | disposition expired | DRG 871 ==
LOC: ER 20:32 → CVICU 23:16 → EDBEDREQSVC 23:18 → EDBEDREQ 23:18 → EDBEDREQTM 23:18 → ENRESERV 03-08 12:08 → CVICU 03-10 14:30 → 3WST 03-13 14:30 → CVICU 03-19 02:11
PROVIDERS: ADMIT Internal Medicine; ATTEND Internal Medicine
PROC: 5A2204Z Restoration of Cardiac Rhythm, Single (ICD-10-PCS; 2020-03-07)
PROC: 4A023N7 Measurement of Cardiac Sampling and Pressure, Left Heart, Percutaneous Approach (ICD-10-PCS; principal; 2020-03-09)
PROC: B2111ZZ Fluoroscopy of Multiple Coronary Arteries using Low Osmolar Contrast (ICD-10-PCS; 2020-03-09)
PROC: B41F1ZZ Fluoroscopy of Right Lower Extremity Arteries using Low Osmolar Contrast (ICD-10-PCS; 2020-03-09)
PROC: 05H533Z Insertion of Infusion Device into Right Subclavian Vein, Percutaneous Approach (ICD-10-PCS; 2020-03-09)
PROC: B546ZZA Ultrasonography of Right Subclavian Vein, Guidance (ICD-10-PCS; 2020-03-09)
PROC: 02H633Z Insertion of Infusion Device into Right Atrium, Percutaneous Approach (ICD-10-PCS; 2020-03-16)
PROC: B548ZZA Ultrasonography of Superior Vena Cava, Guidance (ICD-10-PCS; 2020-03-16)
PROC: 5A1935Z Respiratory Ventilation, Less than 24 Consecutive Hours (ICD-10-PCS; 2020-03-19)
PROC: 0BH18EZ Insertion of Endotracheal Airway into Trachea, Via Natural or Artificial Opening Endoscopic (ICD-10-PCS; 2020-03-19)
DX: A41.9 Sepsis, unspecified organism (principal); I21.4 Non-ST elevation (NSTEMI) myocardial infarction; J96.01 Acute respiratory failure with hypoxia; I50.21 Acute systolic (congestive) heart failure; J69.0 Pneumonitis due to inhalation of food and vomit; R65.21 Severe sepsis with septic shock; K29.71 Gastritis, unspecified, with bleeding; N17.9 Acute kidney failure, unspecified; N39.0 Urinary tract infection, site not specified; I47.1 Supraventricular tachycardia; E46 Unspecified protein-calorie malnutrition; I82.621 Acute embolism and thrombosis of deep veins of right upper extremity; M62.82 Rhabdomyolysis; T82.534A Leakage of infusion catheter, initial encounter; I11.0 Hypertensive heart disease with heart failure; I34.0 Nonrheumatic mitral (valve) insufficiency; I27.21 Secondary pulmonary arterial hypertension; B36.9 Superficial mycosis, unspecified; E83.39 Other disorders of phosphorus metabolism; G40.909 Epilepsy, unspecified, not intractable, without status epilepticus; I48.91 Unspecified atrial fibrillation; I73.9 Peripheral vascular disease, unspecified; J44.9 Chronic obstructive pulmonary disease, unspecified; K21.9 Gastro-esophageal reflux disease without esophagitis; K44.9 Diaphragmatic hernia without obstruction or gangrene; D53.9 Nutritional anemia, unspecified; E16.2 Hypoglycemia, unspecified; I73.00 Raynaud's syndrome without gangrene; I77.6 Arteritis, unspecified; M19.90 Unspecified osteoarthritis, unspecified site; N28.1 Cyst of kidney, acquired; Y71.2 Prosthetic and other implants, materials and accessory cardiovascular devices associated with adverse incidents; Z20.828 Contact with and (suspected) exposure to other viral communicable diseases; G90.8 Other disorders of autonomic nervous system; Z66 Do not resuscitate; Z79.899 Other long term (current) drug therapy; Z86.74 Personal history of sudden cardiac arrest; Z68.26 Body mass index [BMI] 26.0-26.9, adult; K76.0 Fatty (change of) liver, not elsewhere classified; L98.9 Disorder of the skin and subcutaneous tissue, unspecified
CPT/HCPCS: 36246; 36415; 36600; 71045; 72191; 73706; 75710; 76700; 76937; 80048; 80053; 80061; 80305; 81003; 82040; 82375; 82550; 82553; 82805; 82962; 83036; 83520; 83735; 83880; 84100; 84134; 84145; 84443; 84484; 85025; 85651; 86147; 86160; 86225; 86235; 86256; 86431; 86705; 86709; 86803; 87070; 87077; 87106; 87186; 87340; 87426; 90732; 92610; 93005; 93306; 93308; 93458; 93923; 93970; 93971; 94002; 96365; 99291; A6261; C1725; C1760; C1769; C1887; C1893; C9113; J0282; J0692; J0696; J1160; J1200; J1265; J1644; J1650; J1815; J1940; J2250; J2270; J2370; J2405; J2704; J3010; J3370; J3475; J3480; J3490; J7030; J7040; J7042; J7050; J7060; Q9967; A4315